=== PATIENT | female | born 1955 | race Caucasian/White ===

== ENCOUNTER 2022-03-09 08:00 | Outpatient (CLI) | payer BC ==
--- NOTE | 2022-03-09 17:30 | XRAY Report ---
PROCEDURE: Chest 2 View X-Ray INDICATIONS: ACUTE COUGH TECHNIQUE: 2 view(s) of the chest. COMPARISON: None. FINDINGS: Surgical changes and devices: Surgical staple line projects over the left upper and mid lung.. Lungs and pleura: No definite pleural effusions or pneumothorax. Lungs are clear. Mediastinum: Mediastinal contours are normal. Heart size is normal. Bones and chest wall: No suspicious bony abnormalities. Soft tissues appear unremarkable. IMPRESSION: No acute cardiopulmonary abnormality. Reviewed by: Rodrigo Longoria MD on 03/09/2022 5:29 PM PDT Approved by: Rodrigo Longoria MD on 03/09/2022 5:29 PM PDT Station ID: [id number]
== END 2022-03-09 23:59 | disposition home or self-care (01) ==
LOC: DI.S 08:00
PROVIDERS: ATTEND Physician Assistant
DX: R05.1 Acute cough (principal)